=== PATIENT | male | born 1970 | race Caucasian/White ===

== ENCOUNTER 2021-10-05 07:10 | Day surgery (SDC) | payer BC ==
[~2021-10-05] VITALS: Ht 185.4 cm; Wt 119.5 kg
[~2021-10-05 07:10] MED LIST: ADVIL200 MG PO; CEPHALEXIN500 M1 PO; FLOMAX 0.40.4 MG/CAP PO; NO HOME MEDICATIONS; NORCO 325 MG-7.1 TAB PO; PERCOCET 325 MG1 TA2 PO; ROXICODONE 55 MG/TAB PO; STADOL NASA25 MG/BOT NS; WELLBUTRIN XL300 M1 PO
[2021-10-05 07:45] VITALS: BP 122/84; PULSE 77; TEMP 98.1
[2021-10-05] MEDS ORDERED: ADDERALL XR20 MG PO (07:48)
[2021-10-05] MEDS ORDERED: CALCIUM-MAGNES1 EAC1 PO (07:49)
[2021-10-05] MEDS ORDERED: MAGNESIUM ELEME30 MG PO (07:49)
[2021-10-05] MEDS ORDERED: VITAMIN D31000 IU PO (07:50)
--- NOTE | 2021-10-05 08:55 | NUR ---
Pt returned from procedure via cart escorted by NUNO Hu, pt ambulates to chair with SBA X1 and without difficulties, pt is sleepy but VSS and responds quickly to verbal stimuli, offered fluids and food, refused at this time. Reviewed POC with pt and at chair side, verbalized understanding and denies any further needs at this time.
[2021-10-05 09:00] VITALS: BP 108/74; PULSE 81; TEMP 97.7
[2021-10-05 09:15] VITALS: BP 104/76; PULSE 75
[2021-10-05 09:30] VITALS: BP 111/70; PULSE 72
== END 2021-10-05 09:42 | disposition home or self-care (01) ==
LOC: SDCO 07:10
DX: Z12.11 Encounter for screening for malignant neoplasm of colon (principal); K63.5 Polyp of colon; G47.33 Obstructive sleep apnea (adult) (pediatric); K21.9 Gastro-esophageal reflux disease without esophagitis; F90.9 Attention-deficit hyperactivity disorder, unspecified type; Z99.89 Dependence on other enabling machines and devices; Z80.0 Family history of malignant neoplasm of digestive organs
CPT/HCPCS: J2704; J7120